=== PATIENT | female | born 1965 | race African-American/Black ===

== ENCOUNTER 2018-09-04 08:31 | Outpatient (CLI) | payer OTHER ==
--- NOTE | 2018-09-04 13:12 | NM ---
NM Parathyroid Planar W/Spect CT HISTORY: Hyperparathyroidism. Abnormal finding of blood chemistry RADIOPHARMACEUTICAL: 25 mCi technetium 99m-sestamibi injected intravenously. FINDINGS: There is physiologic activity in the salivary glands and the thyroid gland. No abnormal are as of tracer localization are seen in the neck or chest. IMPRESSION: No scintigraphic evidence of parathyroid adenoma.
== END 2018-09-04 08:32 | disposition home or self-care (01) ==
LOC: NM 08:31
PROVIDERS: ATTEND Family Medicine
DX: E21.3 Hyperparathyroidism, unspecified (principal)
CPT/HCPCS: 78072; A9500

== ENCOUNTER 2018-11-03 08:10 | Outpatient (CLI) | payer OTHER ==
--- NOTE | 2018-11-03 08:47 | MMO ---
Bilateral MAMMO Bilat Diag [facility]. CLINICAL HISTORY: Patient is 53 years old and is seen for diagnostic exam. The patient has no family history of breast cancer. The patient has a history of malignant (generic) in the left breast in 2016. The patient has a history of left Lumpectomy in 2016 and bilateral mastopexy in 2008. VIEWS: The views performed were: bilateral craniocaudal with tomosynthesis; bilateral mediolateral oblique with tomosynthesis; and bilateral mediolateral with tomosynthesis. FILMS COMPARED: The present examination has been compared to prior imaging studies performed at [facility] on 11/16/2016, 05/20/2017 and 11/19/2017. This study has been interpreted with the assistance of computer-aided detection. MAMMOGRAM FINDINGS: There are scattered fibroglandular densities. Finding 1: There is a stable intramammary lymph node seen in the right breast. There are no suspicious masses, calcifications or areas of architectural distortion. Finding 2: There is a stable post-surgical scar seen in the left breast. There are no suspicious masses, suspicious calcifications, or new areas of architectural distortion. IMPRESSION: THERE IS NO MAMMOGRAPHIC EVIDENCE OF MALIGNANCY. A ROUTINE FOLLOW-UP MAMMOGRAM IN 1 YEAR IS RECOMMENDED. THE RESULTS OF THIS EXAM WERE SENT TO THE PATIENT. ACR BI-RADS Category 2 - Benign finding MAMMOGRAPHY NOTE: 1. A negative mammogram report should not delay a biopsy if a dominant of clinically suspicious mass is present. 2. Approximately 10% to 15% of breast cancers are not detected by mammography. 3. Adenosis and dense breasts may obscure an underlying neoplasm. Reported by: PURNIMA LANDRY MD Electonically Signed: [id number]
== END 2018-11-03 08:11 | disposition home or self-care (01) ==
LOC: BICMAMMO 08:10
PROVIDERS: ATTEND Family Medicine
DX: C50.912 Malignant neoplasm of unspecified site of left female breast (principal)
CPT/HCPCS: 77066; G0279